=== PATIENT | female | born 1955 | race Caucasian/White ===

== ENCOUNTER 2025-03-30 09:36 | Outpatient (CLI) | payer MEDICARE, OTHER ==
--- NOTE | 2025-03-30 12:45 | RADIOLOGY REPORT ---
EXAM: CT CT LUMBAR SPINE HISTORY: LOW BACK PAIN COMPARISON: None CTDIvol 35 mGy, DLP 1196 mGy*cm. TECHNIQUE: Multiple axial CT images of the spine were obtained using bone algorithm. Axial and coronal reformatting was done. Bone and soft tissue windows were reviewed. FINDINGS: No evidence of definite acute fracture, spinal dislocation, or significant appearing acute subluxation is seen. Degenerative disc space narrowing at L4-L5 and L5-S1. IMPRESSION: No definite CT evidence of acute fracture or dislocation of the bony lumbar spine.
== END 2025-03-30 23:59 | disposition home or self-care (01) ==
LOC: RAD 09:36
PROVIDERS: ATTEND Nurse Practitioner Family
DX: M48.07 Spinal stenosis, lumbosacral region (principal); M54.50 Low back pain, unspecified
CPT/HCPCS: 72131